=== PATIENT | male | born 1955 | race Caucasian/White ===

== ENCOUNTER 2025-05-01 05:56 | Emergency (ER) | payer MEDICARE, SELFPAY ==
--- NOTE | ~2025-05-01 | US_ITS ---
EXAMINATION: US venous doppler [facility] DATE: 05/01/2025 08:12 INDICATION: Left lower limb pain TECHNIQUE: Grayscale ultrasound images without and with compression and Doppler ultrasound images of the left lower extremity veins were obtained. COMPARISON: None. FINDINGS: The visualized portions of left common femoral vein, profunda (deep) femoral vein, femoral vein, popliteal vein, peroneal veins, posterior tibial veins, gastrocnemius vein and greater saphenous vein outflow are patent. IMPRESSION: 1. No deep venous thrombosis in the left lower limb. Reviewed, dictated and finalized at location [employer]. [employer]
[2025-05-01 05:57] VITALS: BP 128/70; PULSE 69; RESP 16; TEMP 36.7; O2SAT 100
--- NOTE | 2025-05-01 07:51 | ED_ITS ---
HPI - General Adult General Chief complaint: Extremity Injury, Lower Stated complaint: R/O DVT - LLE Pain Time Seen by Provider: 05/01/25 07:28 History of Present Illness HPI narrative: 69-year-old male present to the emergency department for evaluation for worsening posterior leg pain. Patient states he was driving from [place] yesterday and about 2 hours into the dry began having left-sided lower calf pain. Patient reports when he stops and ambulated the pain began but did resolve with rest. Patient has no prior history of claudication. Pain happened approximately 2 more times during the drive and did resolve. Ultimately patient arrived into town and states overnight the pain did not resolve. Patient did not take any medication for pain control. Patient has no prior history of PE or DVT. At time of evaluation patient states pain has essentially resolved. Related Data Allergies Allergy/AdvReac Type Severity Reaction Status Date / Time No Known Allergies Allergy Verified 05/01/25 05:59 Review of Systems 2 Review of Systems: All systems reviewed & are unremarkable except as noted in HPI and below Exam 2 Narrative: APPEARANCE: Well appearing, no pain, no distress, well-nourished. HEAD: normocephalic, atraumatic. EYES: PERRLA/EOMI, conjunctivae clear. NOSE: Normal no drainage EARS:TMS clear with good light reflex. THROAT: Pharynx clear, no exudate. NECK: Supple. No adenopathy, no masses. RESPIRATORY: Airway patent, respirations nonlabored. Clear to auscultation bilaterally, no rales, rhonchi, wheezing. CARDIOVASCULAR: Regular rate and rhythm without murmurs rubs or gallops. ABDOMINAL: Soft, nontender, nondistended, normal bowel sounds MUSCULOSKELETAL: Moves all extremities. Strength/ROM intact, No edema, No calf tenderness. NEURO: Alert. Cranial nerves II through XII intact. Good gait. Good coordination SKIN: Warm, dry. Normal Color Course Vital Signs Vital signs: Vital Signs Temperature 98.0 F 05/01/25 05:57 Pulse Rate 69 05/01/25 05:57 Respiratory Rate 16 05/01/25 05:57 Blood Pressure 128/70 05/01/25 05:57 Pulse Oximetry 100 05/01/25 05:57 Oxygen Delivery Room Air 05/01/25 05:57 Temperature 98.0 F 05/01/25 05:57 Pulse Rate 69 05/01/25 05:57 Respiratory Rate 16 05/01/25 05:57 Blood Pressure 128/70 05/01/25 05:57 Pulse Oximetry 100 05/01/25 05:57 Oxygen Delivery Room Air 05/01/25 05:57 [facility] Narrative Medical decision making narrative: 69-year-old male present to the emergency department for evaluation for left posterior calf pain. No evidence of cellulitis. No fracture dislocation. No tenderness with range of motion and no Achilles tendon tenderness. Ultrasound was negative for DVT. Patient may have a muscle strain. Patient was offered crutches for limited weight-bearing the patient declined. Patient was encouraged close follow-up with his primary care physician. All questions concerns were addressed patient was well-appearing at time of discharge. Differential Diagnosis Differential Diagnosis: Left calf strain, hematoma, cellulitis, DVT Lab Data [facility] Lab Attestation statement: I personally reviewed the patient's lab results. 05/01/25 08:37 05/01/25 08:37 Labs: Lab Results 05/01/25 Range/Units 08:37 WBC 5.6 (4.5-10.0) K/mm3 RBC 4.44 L (4.6-6.20) M/mm3 Hgb 13.6 L (14.0-18.0) g/dL Hct 40.7 L (42.0-52.0) % MCV 91.7 (80-100) fl MCH 30.6 (26-34) pg MCHC 33.4 (32-36) g/dl RDW 12.8 (11.5-14.5) % Plt Count 147 L (150-375) k/mm3 MPV 9.9 (7.4-10.4) fl Immature Gran % (Auto) 0.4 (0-0.5) % Neut % (Auto) 67.6 (45.5-73.1) % Lymph % (Auto) 19.0 (18.3-44.2) % [place] % (Auto) 9.3 H (2.6-8.5) % Eos % (Auto) 3.2 (0-4.4) % Baso % (Auto) 0.5 (0.2-1.2) % Lymph # (Auto) 1.07 (0.9-3.2) K/mm3 [place] # (Auto) 0.5 (0.1-0.6) K/mm3 Eos # (Auto) 0.2 (0-0.3) K/mm3 Baso # (Auto) 0.0 (0.0-0.1) K/mm3 Abs Immat Gran (auto) 0.02 (0.00-0.031) K/mm3 Absolute Neuts (auto) 3.8 (1.3-6.7) K/mm3 Absolute Nucleated RBC 0.000 (0.0-0.012) K/mm3 Nucleated RBC % 0.0 (0.0-0.2) % PT 12.8 (11.1-14.7) Seconds INR 1.0 APTT 34.7 (22.3-36.8) Seconds Sodium 139 (137-145) mmol/L Potassium 4.1 (3.4-5.0) mmol/L Chloride 109 H (98-107) mmol/L Carbon Dioxide 23 (22-30) mmol/L Anion Gap 7 (4-12) mmol/L BUN 18 (9-20) mg/dL Creatinine 0.83 (0.7-1.3) mg/dL Estim Creat Clear Calc 91 ml/min Estimated GFR > 60 (59 - ) Glucose 102 (65-110) mg/dL Calcium 9.2 (8.4-10.2) mg/dL Total Bilirubin 0.5 (0.2-1.3) mg/dL AST 43 (17-59) U/L ALT 37 (6-50) U/L Alkaline Phosphatase 61 (38-126) U/L Total Creatine Kinase 119 (55-170) U/L Total Protein 7.1 (6.3-8.2) g/dL Albumin 4.0 (3.5-5.1) g/dL Imaging Data Radiologist's impression: ITS Impressions Venous Doppler Study 05/01/25 08:19 IMPRESSION: 1. No deep venous thrombosis in the left lower limb. Discharge Plan Discharge Clinical Impression: Calf pain Patient Disposition: Home Condition: Stable Instructions: Antibiotic Form, Leg Pain (ED) Additional Instructions: Scheduled anti-inflammatories. Limited weight-bearing as tolerated. Have close follow-up with your primary care physician. Patient Language: Thai Follow-up/Referrals: PHYSICIAN NOT ON STAFF,NONSTAFF [Primary Care Provider]
--- OUTSIDE RECORDS SUMMARY | 2025-05-01 08:13 | XMS_ITS | Patient Health Record ---
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) Active confirmed Problem Horseshoe retinal tear without detachment (665112333) 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, 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) Active confirmed Problem Vitreous degeneration (09688963) Vitreous degeneration, 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 Problem Degenerative myopia (88582601) Degenerative myopia, bilateral (H44.23) Active confirmed Plan Of Treatment Pending Test Test Name Order Date Extended Ophthal 11/11/2014 OCT Retina 12/09/2014 OCT Retina 11/11/2014 Insurance Providers Payer Name Payer Address Payer Phone Subscriber Number Group Number Insured Name Patient Relationship to Insured Coverage Start Date Coverage End Date [facility] [address] [place] [phone] [id number] Rajesh Bello Self - patient is the insured Medical (General) History Surgical History Surgery Date(Month/Year) laser, OD [facility] 2011
--- OUTSIDE RECORDS SUMMARY | 2025-05-01 08:14 | XMS_ITS | Patient Health Record ---
Author Organization [place] Address [address] [facility] [address] [place] [address] Support Name Relationship Address Phone Rajesh Osborn Guarantor Unknown Unavaila ble Allergies No Known Allergies Reason For Referral No Information Social History Tobacco Use: Social History Observation Description Date Details (start date - stop date) Never Smoker NA - NA Tobacco Use/Smoking Question Answer Notes Tobacco use: nonsmoker Problems Problem Type SNOMED Code ICD Code Onset Dates Problem Status W/U Status Risk Notes Problem Mixed hyperlipidemia (742976286) Mixed hyperlipidemia (E78.2) Active confirmed Problem Pure hypercholesterolemia (591539095) Elevated cholesterol (E78.00) Active confirmed Plan Of Treatment No Information Insurance Providers Payer Name Payer Address Payer Phone Subscriber Number Group Number Insured Name Patient Relationship to Insured Coverage Start Date Coverage End Date MEDICARE [address] [place], [place] [phone] [id number] Rajesh Senior Self - patient is the insured [employer] Supplement [address] [address] [place] [phone] [id number] Rajesh Senior Self - patient is the insured
[2025-05-01 08:42] LABS: Hematocrit 40.7 % (42.0-52.0); Hemoglobin 13.6 g/dL (14.0-18.0); Immature Granulocyte Percent A 0.4 % (0-0.5); Lymphocytes Absolute Auto 1.07 K/mm3 (0.9-3.2); Mean Corpuscular HGB Conc 33.4 g/dl (32-36); Mean Corpuscular Hemoglobin 30.6 pg (26-34); Mean Corpuscular Volume 91.7 fl (80-100); Nucleated Red Blood Cells Absolute Auto 0.000 K/mm3 (0.0-0.012); Nucleated Red Blood Cells Perc 0.0 % (0.0-0.2); Platelet Count Result 147 k/mm3 (150-375); Red Blood Count 4.44 M/mm3 (4.6-6.20); White Blood Count 5.6 K/mm3 (4.5-10.0)
[2025-05-01 08:53] LABS: INR 1.0; Prothrombin Time 12.8 Seconds (11.1-14.7)
[2025-05-01 08:54] LABS: Alanine Aminotransferase 37 U/L (6-50); Albumin Level 4.0 g/dL (3.5-5.1); Alkaline Phosphatase 61 U/L (38-126); Anion Gap 7 mmol/L (4-12); Aspartate Amino Transferase 43 U/L (17-59); Bilirubin,Total 0.5 mg/dL (0.2-1.3); Blood Urea Nitrogen 18 mg/dL (9-20); Calcium 9.2 mg/dL (8.4-10.2); Carbon Dioxide 23 mmol/L (22-30); Chloride 109 mmol/L (98-107); Creatine Kinase 119 U/L (55-170); Estimated CRCL calculation 91 ml/min; Estimated Glomerular Filt Rate > 60; Glucose 102 mg/dL (65-110); Partial Thromboplastin Time 34.7 Seconds (22.3-36.8); Potassium 4.1 mmol/L (3.4-5.0); Sodium 139 mmol/L (137-145); Total Protein 7.1 g/dL (6.3-8.2)
== END 2025-05-01 10:34 | disposition home or self-care (01) ==
PROVIDERS: Emergency Provider Emergency Medicine
DX: M79.662 Pain in left lower leg (principal)
CPT/HCPCS: 36415; 80053; 82550; 85025; 85610; 85730; 93971; 99284